=== PATIENT | female | born 1955 | race Caucasian/White ===

== ENCOUNTER 2017-01-08 20:40 | Emergency (ER) | payer OTHER ==
[~2017-01-08] VITALS: Ht 160 cm; Wt 132.5 kg
[~2017-01-08 20:40] MED LIST: ACTOS15 MG PO; ADVAIR 250/501 DISK IH; ALPRAZOLAM0.5 MG PO; AMBIEN10 MG PO; ASPIRIN81 M2 PO; ATIVAN1 MG PO; Ambien PO; BACTRIM,SEPT1 TABLET PO; BENAZEPRIL; BLACK COHOSH540 MG PO; CARAFATE1 GM PO; CEFTIN500 MG PO; CLARITIN10 M3 PO; COGENTIN0.5 MG PO; COMBIVENT RESPIM4 GM IH; GLUCOPHAGE XR750 MG PO; HALDOL1 M1 PO; HALOPERIDOL2 MG PO; HYDROCODON-ACE1 EAC7 PO; HYDROXYZINE PAM25 MG PO; Habitrol,Nicoderm CQ TD; IRON325 M1 PO; IRON325 MG PO; LASIX20 MG PO; LASIX40 MG PO; LOTENSIN40 MG PO; METFORMIN HCL1000 MG PO; METOPROLOL; METOPROLOL TAR100 MG PO; Norvasc PO; Osteo-Biflex,Flex-A- PO; PAXIL; PRAVACHOL40 MG PO; PRAVASTATIN SOD40 MG PO; PREVACID30 MG PO; PROTONIX40 MG PO; PYRIDIUM200 MG PO; Pravachol PO; STRATTERA; STRATTERA40 MG PO; SUCRALFATE1 GM PO; VASOTEC; VITAMIN B-12250 MC2 PO; VITAMIN C500 M1 PO; VITAMIN D400 UNI1 PO; Vitamin B Complex PO; XANAX1 MG PO; XANAX2 MG PO; ZOLOFT100 MG PO; ZYRTEC; Zoloft PO; ZyrTEC PO; [UNRECOGNIZED DRUG - OTHER] PO; predniSONE PO
[2017-01-08] MEDS ORDERED: NAPROSYN500 MG PO (23:58)
[2017-01-09 00:11] VITALS: BP 136/72
== END 2017-01-09 00:12 | disposition home or self-care (01) ==
LOC: EME 20:40
DX: M54.5 Low back pain (principal); S09.90XA Unspecified injury of head, initial encounter; W10.9XXA Fall (on) (from) unspecified stairs and steps, initial encounter; I10 Essential (primary) hypertension; E11.9 Type 2 diabetes mellitus without complications; F95.2 Tourette's disorder; G47.30 Sleep apnea, unspecified; Z79.82 Long term (current) use of aspirin; Z79.84 Long term (current) use of oral hypoglycemic drugs; Z87.891 Personal history of nicotine dependence
CPT/HCPCS: 72100; 72220; 99281; 99283; J1885

== ENCOUNTER 2017-04-21 22:14 | Emergency (ER) | payer OTHER ==
[~2017-04-21] VITALS: Ht 160 cm; Wt 127.6 kg
[~2017-04-21 22:14] MED LIST changes: +NAPROSYN500 MG PO
[2017-04-22 01:05] VITALS: BP 141/94
== END 2017-04-22 01:05 | disposition home or self-care (01) ==
LOC: EME 22:14
DX: Z76.0 Encounter for issue of repeat prescription (principal); F41.9 Anxiety disorder, unspecified; F95.2 Tourette's disorder; E66.01 Morbid (severe) obesity due to excess calories; Z68.42 Body mass index [BMI] 45.0-49.9, adult
CPT/HCPCS: 99281; 99283; Q0177

== ENCOUNTER 2017-08-22 12:48 | Emergency (ER) | payer OTHER ==
[~2017-08-22] VITALS: Ht 157.5 cm; Wt 132.6 kg
[2017-08-22] MEDS ORDERED: NAPROSYN500 MG PO (14:39)
[2017-08-22] MEDS ORDERED: TRAMADOL HCL50 MG PO (14:39)
[2017-08-22 15:03] VITALS: BP 132/90
== END 2017-08-22 15:03 | disposition home or self-care (01) ==
LOC: EME 12:48
DX: M17.11 Unilateral primary osteoarthritis, right knee (principal); M25.461 Effusion, right knee; G89.29 Other chronic pain; E66.01 Morbid (severe) obesity due to excess calories; I10 Essential (primary) hypertension; F41.9 Anxiety disorder, unspecified; E11.9 Type 2 diabetes mellitus without complications; E78.00 Pure hypercholesterolemia, unspecified
CPT/HCPCS: 73564; 99281; 99284; J1885

== ENCOUNTER 2018-01-07 21:12 | Emergency (ER) | payer OTHER ==
[~2018-01-07] VITALS: Ht 160 cm; Wt 132.9 kg
[~2018-01-07 21:12] MED LIST changes: +TRAMADOL HCL50 MG PO
[2018-01-07 22:03] LABS: BASOPHIL (%) 0.8 % (0-1); BASOPHIL COUNT 0.1 K/uL (0-0.1); EOSINOPHIL (%) 2.7 % (0-5); EOSINOPHIL COUNT 0.2 K/uL (0-0.3); HEMATOCRIT 33.6 % (36.0-46.0); HEMOGLOBIN 11.2 G/DL (11.9-15.5); IMMATURE GRANULOCYTE (%) 0.3 % (0.0-0.7); LYMPHOCYTE (%) 31.7 % (15-42); LYMPHOCYTE COUNT 2.8 K/uL (1.0-2.8); MCH 28.9 PG (29.0-34.0); MCHC 33.3 G/DL (30.0-36.0); MCV 86.6 FL (83-99); MONOCYTE (%) 6.9 % (3-12); MONOCYTE COUNT 0.6 K/uL (0-0.8); NEUTROPHIL (%) 57.6 % (45-76); NEUTROPHIL COUNT 5.1 K/uL (1.8-6.4); PLATELET COUNT 361 K/uL (156-360); RBC DIS.WIDTH-CV 12.4 % (11.8-14.6); RBC DIS.WIDTH-SD 39.3 % (39-53); RED BLOOD COUNT 3.88 M/uL (3.80-5.20); WHITE BLOOD COUNT 8.8 K/uL (4.1-10.2)
[2018-01-07 22:12] LABS: CHLORIDE 96 mEq/L (99-109); POTASSIUM 4.4 mEq/L (3.7-5.4); SODIUM 127 mEq/L (136-147)
[2018-01-07 22:14] LABS: GLUCOSE 126 mg/dL (70-99)
[2018-01-07 22:17] LABS: SERUM ETHYL ALCOHOL 169 mg/dL
[2018-01-07 22:18] LABS: CREATININE 0.8 mg/dL (0.6-1.3); GFR ESTIMATE (CALCULATED) > 59 mL/min/
[2018-01-07 22:19] LABS: UREA NITROGEN (BUN) 10 mg/dL (9-23)
[2018-01-07 23:32] VITALS: BP 135/82
== END 2018-01-07 23:38 | disposition left against medical advice (07) ==
LOC: EME → EDBD 21:12 → EME 23:38
PROVIDERS: Emergency Medicine
DX: R51 Headache (principal); F10.129 Alcohol abuse with intoxication, unspecified; Y90.6 Blood alcohol level of 120-199 mg/100 ml; W18.30XA Fall on same level, unspecified, initial encounter; Z53.29 Procedure and treatment not carried out because of patient's decision for other reasons; Z88.1 Allergy status to other antibiotic agents; Z88.8 Allergy status to other drugs, medicaments and biological substances
CPT/HCPCS: 80048; 85025; 99281; 99283; G0480

== ENCOUNTER 2018-01-17 17:54 | Emergency (ER) | payer OTHER ==
[~2018-01-17] VITALS: Ht 157.5 cm; Wt 129.9 kg
[2018-01-17 20:36] LABS: APPEARANCE CLEAR ((CLEAR)); BILIRUBIN NEGATIVE; BLOOD NEGATIVE; COLOR YELLOW ((YELLOW)); GLUCOSE (STRIP) NEGATIVE; KETONES NEGATIVE; LEUKOCYTES MODERATE; NITRITE NEGATIVE; PROTEIN (STRIP) NEGATIVE; SPECIFIC GRAVITY 1.015 (1.000-1.030); UROBILINOGEN 0.2 MG/DL (0.2-1.0)
[2018-01-17 21:15] LABS: BACTERIA RARE /HPF; EPITHELIAL CELLS RARE /HPF; HYALINE CASTS 0-5 /LPF; MUCUS TRACE /LPF; RED BLOOD CELLS 0-5 /HPF (0-5); UCUL ADDED? YES
[2018-01-17] MEDS ORDERED: MOTRIN600 MG PO (21:34)
[2018-01-17] MEDS ORDERED: FLEXERIL10 MG PO (21:34)
[2018-01-17 21:45] VITALS: BP 158/76
== END 2018-01-17 21:47 | disposition home or self-care (01) ==
LOC: EME 17:54
PROVIDERS: Nurse Practitioner Family
DX: S20.219A Contusion of unspecified front wall of thorax, initial encounter (principal); W18.30XA Fall on same level, unspecified, initial encounter; E11.9 Type 2 diabetes mellitus without complications; I10 Essential (primary) hypertension; E78.5 Hyperlipidemia, unspecified; F95.2 Tourette's disorder; F32.9 Major depressive disorder, single episode, unspecified; F41.9 Anxiety disorder, unspecified; Z79.84 Long term (current) use of oral hypoglycemic drugs; Z79.82 Long term (current) use of aspirin; Z88.1 Allergy status to other antibiotic agents; Z88.8 Allergy status to other drugs, medicaments and biological substances
CPT/HCPCS: 71100; 81003; 87077; 87086; 87186; 99281; 99283; J1885